=== PATIENT | female | born 2000 | race Caucasian/White ===

== ENCOUNTER 2020-01-26 23:47 | Emergency (ER) | payer BC ==
[~2020-01-26] VITALS: Ht 162.6 cm; Wt 65.9 kg
[2020-01-26 23:59] VITALS: BP 120/84; TEMP 98.3
[2020-01-27] MEDS ORDERED: NEXPLANON68 MG ID (00:04)
[2020-01-27 01:19] LABS: BASO % 0.6 % (0.0-2.0); EOS # 0.1 (0.0-0.7); EOS % 0.9 % (0-4.0); GRAN # 4.3 (1.4-6.5); GRAN % 64.9 % (42.2-75.2); HEMATOCRIT 39.3 % (35.0-45.0); HEMOGLOBIN 13.2 g/dl (12.0-15.0); LYMPH # 1.8 (1.2-3.4); LYMPH % 27.4 % (20.0-51.0); MEAN CELL VOLUME 91 fl (80.0-95.0); MEAN CORPUSCULAR HEMOGLOBIN 31 pg (26.0-32.0); MEAN CORPUSCULAR HGB CONC 34 g/dl (33.0-37.0); MEAN PLATELET VOLUME 10.1 fl (7.4-10.4); MONO # 0.4 (0.1-0.6); MONO % 6.1 % (1.7-9.3); PLATELET COUNT 251 K/mm3 (130-400); RED BLOOD COUNT 4.32 M/mm3 (4.10-5.30); REDCELL DISTRIBUTION WIDTH-CV 12.2 % (11.5-14.5)
[2020-01-27 02:13] LABS: ALANINE AMINOTRANSFERASE 19 U/L (4-34); ALBUMIN 4.7 gm/dL (3.5-5.0); ALKALINE PHOSPHATASE 101 U/L (50-136); ANION GAP 11 mmol/L (7-16); AST,SGOT 30 U/L (15-37); BILIRUBIN,TOTAL 0.4 mg/dL (0.0-1.0); BLOOD UREA NITROGEN 12 mg/dL (7-17); CALCIUM 9.1 mg/dL (8.4-10.2); CARBON DIOXIDE 24 mmol/L (22-30); CHLORIDE 106 mmol/L (98-107); CREATININE, serum 0.53 (0.52-1.25); GLUCOSE 101 mg/dL (74-106); POTASSIUM 3.6 mmol/L (3.4-5.0); SODIUM 141 mmol/L (137-145); TOTAL PROTEIN 7.4 gm/dL (6.4-8.2)
[2020-01-27 02:27] LABS: TROPONIN-I < 0.012 ng/mL (0.000-0.035)
[2020-01-27 02:43] VITALS: PULSE 78
== END 2020-01-27 02:43 | disposition home or self-care (01) ==
LOC: COL.ER 23:47
PROVIDERS: Nurse Practitioner
DX: R07.89 Other chest pain (principal); Z32.02 Encounter for pregnancy test, result negative; Z86.19 Personal history of other infectious and parasitic diseases; Z79.3 Long term (current) use of hormonal contraceptives